=== PATIENT | female | born 1985 | race Caucasian/White ===

== ENCOUNTER 2018-05-25 12:40 | Outpatient (CLI) | END 2018-05-25 14:34 | disposition home or self-care (01) ==

== ENCOUNTER 2018-05-28 10:51 | Outpatient (CLI) | END 2018-05-28 12:45 | disposition home or self-care (01) ==

== ENCOUNTER 2018-06-03 15:31 | Outpatient (CLI) | END 2018-06-03 18:51 | disposition home or self-care (01) ==

== ENCOUNTER 2018-06-04 21:16 | Inpatient (IN) | END 2018-06-08 18:52 | disposition home or self-care (01) | DRG 786 ==